=== PATIENT | male | born 1965 | race African-American/Black ===

== ENCOUNTER 2017-07-05 16:46 | Emergency (ER) | payer MEDICARE ==
[~2017-07-05] VITALS: Ht 182.9 cm; Wt 94.1 kg
--- NOTE | 2017-07-05 16:55 | NUR ---
BIB RA C/O PAIN TO L FEMORAL SHUNT DURING DIALYSIS 50MIN OF DIALYSIS COMPLETED. RR IS EVEN AND UNLABORED NAD NOTED. SKIN IS WARM AND DRY. AWAITING MD FOR EVAL.
[2017-07-05] MEDS ORDERED: FLUT1DIS5 IH (17:20)
[2017-07-05] MEDS ORDERED: ASPI-1169 PO (17:20)
[2017-07-05] MEDS ORDERED: ACET-868 PO (17:20)
[2017-07-05] MEDS ORDERED: ATOR40TA PO (17:20)
[2017-07-05] MEDS ORDERED: BISA5TAB10 PO (17:20)
[2017-07-05] MEDS ORDERED: HEPA10009 SQ (17:36)
[2017-07-05] MEDS ORDERED: OXYC-128 PO (17:36)
[2017-07-05] MEDS ORDERED: MONT10TA22 PO (17:36)
[2017-07-05] MEDS ORDERED: PANT40TA4 PO (17:36)
[2017-07-05] MEDS ORDERED: ISOS60TA4 PO (17:36)
[2017-07-05] MEDS ORDERED: DIVA250T6 PO (17:36)
[2017-07-05] MEDS ORDERED: NITR0.4T48 SL (17:36)
[2017-07-05] MEDS ORDERED: LACT10SO PO (17:36)
[2017-07-05] MEDS ORDERED: DIPH25CA6 PO (17:36)
[2017-07-05] MEDS ORDERED: LEVE250T2 PO (17:36)
[2017-07-05] MEDS ORDERED: LOSA100T15 PO (17:36)
[2017-07-05] MEDS ORDERED: FAMO20TA8 PO (17:36)
[2017-07-05] MEDS ORDERED: CITA10TA9 PO (17:36)
[2017-07-05] MEDS ORDERED: FERR325T23 PO (17:36)
[2017-07-05] MEDS ORDERED: CLOP75TA15 PO (17:36)
[2017-07-05] MEDS ORDERED: HYPR15DR5 EACHEYE (17:36)
[2017-07-05] MEDS ORDERED: INSU100V27 SQ (17:36)
[2017-07-05] MEDS ORDERED: GUAI100S11 PO (17:36)
[2017-07-05] MEDS ORDERED: CLON0.1T PO (17:36)
[2017-07-05] MEDS ORDERED: CARV6.252 PO (17:36)
[2017-07-05] MEDS ORDERED: EPOE1VIA12 SQ (17:36)
[2017-07-05] MEDS ORDERED: IPRA3AMP IH (17:36)
[2017-07-05] MEDS ORDERED: CINA30TA2 PO (17:36)
[2017-07-05] MEDS ORDERED: FOLI0.8T23 PO (17:38)
[2017-07-05] MEDS ORDERED: POLY17PO4 PO (17:38)
[2017-07-05] MEDS ORDERED: PHEN100C4 PO (17:38)
[2017-07-05] MEDS ORDERED: SEVE800T8 PO (17:38)
[2017-07-05] MEDS ORDERED: HYDROCODONE/APAP 5/325MG 1 EACH TABLET PO ONE (18:00)
[2017-07-05] MEDS ORDERED: HYDROCODONE/APAP 5/325MG 1 EACH TABLET ONE (18:03)
--- NOTE | 2017-07-05 18:51 | NUR ---
REPORT GIVEN TO SIDRA ORTEZ FOR [facility].
--- NOTE | 2017-07-05 18:54 | NUR ---
PT GIVEN D/C INSTRUCTOINS. PT GIVEN NEW RX. PT HAS NO FURTHER QUESTIONS/CONCERNS. PT CURRERNTLY AWAITING TRANSPORT FOR PICKUP.
--- NOTE | 2017-07-05 18:55 | NUR ---
DAVID CALLED [facility]SP[facility]#[id number]
[2017-07-05 19:50] VITALS: BP 154/84
== END 2017-07-05 19:51 ==
LOC: ER 16:47
DX: T84.84XA Pain due to internal orthopedic prosthetic devices, implants and grafts, initial encounter (principal); D50.9 Iron deficiency anemia, unspecified; E21.3 Hyperparathyroidism, unspecified; E11.22 Type 2 diabetes mellitus with diabetic chronic kidney disease; I12.0 Hypertensive chronic kidney disease with stage 5 chronic kidney disease or end stage renal disease; N18.6 End stage renal disease; Z99.2 Dependence on renal dialysis; Z79.4 Long term (current) use of insulin; Z88.1 Allergy status to other antibiotic agents; Z88.8 Allergy status to other drugs, medicaments and biological substances; Z79.82 Long term (current) use of aspirin
CPT/HCPCS: 93926; 99284; A4606; Z7610

== ENCOUNTER 2018-02-12 15:57 | Inpatient (IN) | payer MEDICARE, OTHER ==
[~2018-02-12] VITALS: Ht 165.1 cm; Wt 93.9 kg
[2018-02-12] VITALS: BP 81/37
[~2018-02-12 15:57] MED LIST: ACET-868 PO; ASPI-1169 PO; ATOR40TA PO; BISA5TAB10 PO; CARV6.252 PO; CINA30TA2 PO; CITA10TA9 PO; CLON0.1T PO; CLOP75TA15 PO; DIPH25CA6 PO; DIVA-76 PO; EPOE1VIA12 SQ; FAMO20TA8 PO; FERR325T23 PO; FLUT1DIS5 IH; FOLI0.8T23 PO; GUAI100S11 PO; HEPA10009 SQ; HYPR15DR5 EACHEYE; INSU100V27 SQ; IPRA3AMP23 IH; ISOS60TA4 PO; LACT10SO PO; LEVE250T2 PO; LOSA100T15 PO; MONT10TA22 PO; NITR0.4T48 SL; OXYC-128 PO; PANT40TA4 PO; PHEN100C4 PO; POLY17PO4 PO; SEVE800T8 PO
[2018-02-12] MEDS ORDERED: LINEZOLID RTU BAG 600 MG in PREMIX 1 EA IV STA (16:07)
[2018-02-12] MEDS ORDERED: CEFEPIME 1 GM in IV D5W 50 ML IV ONE (16:30)
[2018-02-12] MEDS ORDERED: IV NS 0.9% 1,000 ML BAG IV ONE (16:30)
[2018-02-12] MEDS ORDERED: ACETAMINOPHEN ES 500 MG TABLET PO ONE (16:30)
[2018-02-12] MEDS ORDERED: ACETAMINOPHEN ES 500 MG TABLET ONE (16:40)
[2018-02-12] MEDS ORDERED: ASCO500T9 PO (16:42)
[2018-02-12] MEDS ORDERED: HYDR-552 PO (16:42)
[2018-02-12] MEDS ORDERED: BISA5TAB10 PO (16:42)
[2018-02-12] MEDS ORDERED: TRAZ-182 PO (16:42)
[2018-02-12] MEDS ORDERED: NITR0.4T48 SL (16:42)
[2018-02-12] MEDS ORDERED: SENN-167 PO (16:42)
[2018-02-12] MEDS ORDERED: ONDA4TAB5 PO (16:42)
[2018-02-12 16:48] LABS: INR 1.27 (0.87-1.13)
--- NOTE | 2018-02-12 16:52 | NUR ---
Note undone in EDM - 02/12/18 at 1715 by DELMAR BIBRA 61 [facility] C/O CHEST PAIN AND FEVER WHILE IN THE MIDDLE OF DIALYSIS, 2HRS OUT OF 3 HRS. PT LETHARGIC, AAOX1, EASILY AWAKEN WITH VERBAL STIMULI & WILL GO BACK TO SLEEP RIGHT AWAY. NO SOB, N/V @ THIS TIME. ON SIDE SEAM MACHINE OPERATOR, ST, NO ECTOPY NOTED. PT SEEN & EVAL'D BY DR. ALEX. WILL CONT TO MONITOR.
--- NOTE | 2018-02-12 16:52 | NUR ---
BIBRA 61 FROM [facility]IS CENTER C/O CHEST PAIN AND FEVER WHILE IN THE MIDDLE OF DIALYSIS, 2HRS OUT OF 3 HRS. PT LETHARGIC, AAOX1, EASILY AWAKEN WITH VERBAL STIMULI & WILL GO BACK TO SLEEP RIGHT AWAY. ON HUMAN RESOURCES RECORDS CLERK, ST, NO ECTOPY NOTED. PT SEEN & EVAL'D BY DR. ALEX. WILL CONT TO MONITOR.
[2018-02-12 16:56] LABS: TROPONIN I 0.156 ng/mL (0.00-0.056)
[2018-02-12 17:10] LABS: ALBUMIN 3.5 g/dL (3.4-5.0); BILIRUBIN,TOTAL 0.7 mg/dL (0.2-1.0); CALCIUM, SERUM 8.9 mg/dL (8.5-10.1); CREATININE 4.7 mg/dL (0.6-1.3); POTASSIUM 3.7 mmol/L (3.5-5.1); TOTAL PROTEIN, SERUM 8.6 g/dL (6.4-8.2)
[2018-02-12 17:20] LABS: BILIRUBIN,DIRECT 0.4 mg/dL (0.0-0.2)
[2018-02-12] MEDS ORDERED: PHEN100C4 PO (17:20)
[2018-02-12] MEDS ORDERED: BISA10SU8 RC (17:20)
[2018-02-12] MEDS ORDERED: INSU100V3 SQ (17:20)
[2018-02-12 17:21] LABS: RED BLOOD CELL COUNT(AUTO) 2.53 MIL/uL (4.5-6.0); WHITE BLOOD COUNT (AUTO) 2.1 K/uL (4.3-11.0)
[2018-02-12 17:22] LABS: BASOPHILS % (AUTO) 0.9 % (0.0-2.0); EOSINOPHILS % (AUTO) 2.5 % (0.0-6.0); HEMATOCRIT 22 % (39-51); HEMOGLOBIN 7.5 g/dL (13.5-17.5); LYMPHOCYTES % (AUTO) 14.8 % (20.0-44.0); MEAN CORPUSCULAR HGB CONC 33 g/dl (31.0-36.0); MEAN CORPUSCULAR VOLUME 89 fL (80-96); MONOCYTES % (AUTO) 12.1 % (2.0-12.0); NEUTROPHILS % (AUTO) 69.7 % (43.0-81.0); PLATELET COUNT (AUTO) 112 /CMM (150-450); RDW COEFFICIENT OF VARIATION 20.1 (11.5-15.0)
[2018-02-12 17:25] LABS: LYMPHOCYTES # (AUTO) 0.3 /CMM (0.8-4.8); MONOCYTES # (AUTO) 0.3 /CMM (0.1-1.30); NEUTROPHILS # (AUTO) 1.5 /CMM (1.8-8.9)
--- NOTE | 2018-02-12 18:27 | NUR ---
CALLED [facility] NEPHROLOGY SOAPSTONER WAS PAGED.
[2018-02-12] MEDS ORDERED: KETOROLAC TROMETHAMINE INJ 30 MG/ML VIAL IV ONE (19:00)
[2018-02-12] MEDS ORDERED: KETOROLAC TROMETHAMINE 15 MG/ML VIAL ONE (19:04)
--- NOTE | 2018-02-12 19:44 | NUR ---
PT IS ASSIGNED TO [facility]#: [id number], DX: SEPSIS, AND ACCEPTING MD: NELSON CHAVES,
[2018-02-12] MEDS ORDERED: MORPHINE SULFATE INJ 4 MG/ML DISP.SYRIN ONE (20:24)
[2018-02-12] MEDS ORDERED: ONDANSETRON HCL/PF 4 MG/2 ML VIAL ONE (20:38)
--- NOTE | 2018-02-12 20:46 | NUR ---
PT ARRIVED FROM [facility] IN STABLE CONDITION NO COMPLAIN OF CHEST PAIN AT THIS TIME. UPON CHECKING ORDERS PT IS TO ADMIT TO JEN. COMMUNITY ARTS WORKER CALLED AWAITING FOR JEN BED.
[2018-02-12] MEDS ORDERED: MORPHINE SULFATE INJ 2 MG/ML DISP.SYRIN IV ONE (21:00)
[2018-02-12] MEDS ORDERED: ONDANSETRON HCL/PF 4 MG/2 ML VIAL IVP ONE (21:00)
--- NOTE | 2018-02-12 21:20 | NUR ---
PT TRANSFERRED TO [facility] ROOM 120 ACLS PROTOCOL IN STABLE CONDITION PER ORDERS OF DR. GIFFORD. GAVE REPORT JEN VALENTE Addendum: 02/12/18 at 2141 by ANTONI QUINTANILLA RN NO INCIDENT
[2018-02-12 21:30] VITALS: BP 116/87
[2018-02-12] MEDS ORDERED: ACETAMINOPHEN 325 MG TABLET PO PRN ×2 (21:30→22:00)
--- NOTE | 2018-02-12 21:30 | NUR ---
RN JEN ADMITTING NOTE RECEIVED PT FROM [facility], BEDSIDE REPORT GIVEN BY [facility] NURSE, PT AMS, ON 2L NC WELL FLOR[place]INO LETHARGIC, SPEECH NOT CLEAR, VERY WEAK, DR NELSON CHAVES ADMITTING, DIAGNOSIS SEPSIS, ALL ADMITTING ORDERS ENTERED PER PROTOCOL, W/SKIN ISSUES NOTED, LW#20G, INTACT, WELL SECURED AND PATENT, SAFETY MEASURES MET, WILL CONT TO MONITOR, BED IN LOW POSITION, CALL LIGHT W/R.
[2018-02-12] MEDS ORDERED: DEXTROSE 50%-WATER 50 ML DISP.SYRIN IV PRN (23:00)
[2018-02-12] MEDS: BLOOD SUGAR DIAGNOSTIC 1 EACH STRIP IN SCH (23:47)
[2018-02-13] VITALS (9 sets, daily range): BP systolic 79–145; BP diastolic 16–105
[2018-02-13] MEDS: PIPERACILLIN /TAZOBACTAM 2.25 G in IV D5W 50 ML IV SCH ×5 (00:04→23:08)
--- NOTE | 2018-02-13 00:25 | NUR ---
RECHECKED BS AFTER DEXTROSE IV PUSH BS 95 15 MIN
--- NOTE | 2018-02-13 00:40 | NUR ---
PT BP LOW 81/37 84 HR.
[2018-02-13] MEDS ORDERED: IV NS 0.9% 500 ML BAG IV ONE (01:15)
--- NOTE | 2018-02-13 01:16 | NUR ---
IV NS 500ML GIVEN OVER 2HR X 1 BAG BP STILL LOW, UNABLE TO SCAN BAG TO IV SPREAD SHEET.
--- NOTE | 2018-02-13 01:45 | NUR ---
CALLED SOFTWARE DEVELOPMENT PROJECT MANAGER DR NELSON CHAVES, W/ ORDERS FOR NS 500M/ IV OVER 2HRS AND 25% ALBUMIN, 200ML AND AFTER IF BP DOES NOT INCREASE TRANSFER TO ICU. Addendum: 02/13/18 at 0532 by SHARMILA VAUGHN RN NS 500ML X1 BAG AND ALBUMIN 25% TOTAL GIVEN 100ML, UNABLE TO VERIFY W/MD NELSON CHAVES IF DOSE TO BE GIVEN IS 200ML TOTAL, HANG UP PHONE WHEN ASKED TO VERIFY DOSE, NOT CLEAR AT TIME OF T/O.
[2018-02-13] MEDS ORDERED: ALBUMIN 25% 50 ML IV ONE (03:48)
[2018-02-13] MEDS: ALBUMIN 25% 25 GM in PREMIX 1 EA IV PRN ×2 (04:22→05:12)
[2018-02-13] MEDS ORDERED: PIPERACILLIN /TAZOBACTAM 2.25 G VIAL IV ONE ×2 (05:44)
[2018-02-13] MEDS: BLOOD SUGAR DIAGNOSTIC 1 EACH STRIP IN SCH ×4 (06:19→21:20)
--- NOTE | 2018-02-13 06:44 | NUR ---
RN JEN CLOSING NOTE PT CONT ON MONITORING FOR LOW BP 81/31 81, ALBUMIN TOTAL 100/25% GIVEN, BP INCREASE TO 90/40 73. PT APPEARED LETHERGIC, DIFFICULT TO AROUSE BY NAME, 0730 BS CHECKED 0600 D/T LOW TRENDING, RECHECKED 69 AROUSED PT CRANEBERRY JUICE GIVEN PO, WELL FLORENTINO, PT ABLE TO WAKE UP, WILL ENDORSE TO AM SHIFT RN TO CONT TO MONITOR.
[2018-02-13 07:13] LABS: CALCIUM, SERUM 8.4 mg/dL (8.5-10.1); CREATININE 5.6 mg/dL (0.6-1.3); MAGNESIUM 1.8 mg/dL (1.8-2.4); PHOSPHORUS 4.1 mg/dL (2.5-4.9); POTASSIUM 4.1 mmol/L (3.5-5.1)
[2018-02-13] MEDS ORDERED: ALBUTEROL FS 2.5 MG/0.5 ML VIAL.NEB NEB SCH (07:35)
--- NOTE | 2018-02-13 08:00 | NUR ---
RN JEN OPENING NOTES RECEIVED PATIENT IN BED EXTREMELY LETHARGIC. ABLE TO AROUSE WITH AGGRESSIVE STIMULATION. FULL REPORT RECEIVED FROM BRADEN. VITAL SIGNS STILL REMAIN UNSTABLE B/P 93/27 AFTER ONE DOSE OF ALBUMIN ABLE TO WAKE TO EAT BREAKFAST NO S/S OF ASPIRATION. PT HEARD OF HEARING WILL CONT YO MONITOR LABS AND VITALS TO SEE IF PT NEEDS HIGHER LEVEL OF CARE.
[2018-02-13 08:11] LABS: WHITE BLOOD COUNT (AUTO) 4.8 K/uL (4.3-11.0)
[2018-02-13 08:12] LABS: BASOPHILS % (AUTO) 0.5 % (0.0-2.0); EOSINOPHILS % (AUTO) 0.5 % (0.0-6.0); HEMATOCRIT 23 % (39-51); HEMOGLOBIN 7.3 g/dL (13.5-17.5); LYMPHOCYTES % (AUTO) 11.8 % (20.0-44.0); MEAN CORPUSCULAR HGB CONC 32 g/dl (31.0-36.0); MEAN CORPUSCULAR VOLUME 90 fL (80-96); MONOCYTES % (AUTO) 23.8 % (2.0-12.0); NEUTROPHILS % (AUTO) 63.4 % (43.0-81.0); PLATELET COUNT (AUTO) 75 /CMM (150-450); RED BLOOD CELL COUNT(AUTO) 2.53 MIL/uL (4.5-6.0)
[2018-02-13 08:13] LABS: LYMPHOCYTES # (AUTO) 0.6 /CMM (0.8-4.8); MONOCYTES # (AUTO) 1.1 /CMM (0.1-1.30); NEUTROPHILS # (AUTO) 3.1 /CMM (1.8-8.9)
[2018-02-13] MEDS ORDERED: ALBUTEROL FS 2.5 MG/0.5 ML VIAL.NEB NEB PRN (08:18)
[2018-02-13] MEDS ORDERED: SENNOSIDES 8.6 MG TABLET PO PRN (08:30)
[2018-02-13] MEDS ORDERED: INSULIN REGULAR, HUMAN 100 UNIT/ML 3 ML VIAL SQ PRN (08:30)
[2018-02-13] MEDS ORDERED: BISACODYL (5 MG) 5 MG TABLET.DR PO PRN (08:30)
[2018-02-13] MEDS ORDERED: ACETAMINOPHEN 325 MG TABLET PO PRN (08:30)
[2018-02-13] MEDS: PANTOPRAZOLE 40 MG TABLET.DR PO SCH ×2 (08:30→09:19)
[2018-02-13] MEDS ORDERED: BISACODYL SUPP (10 MG) 10 MG/SUPP.RECT SUPP.RECT RC PRN (08:30)
[2018-02-13] MEDS: ASCORBIC ACID 500 MG TABLET PO SCH ×2 (09:00→09:15)
[2018-02-13] MEDS: CITALOPRAM HYDROBROMIDE 10 MG TABLET PO SCH ×2 (09:00→09:14)
[2018-02-13] MEDS: PHENYTOIN EXTENDED RELEASE 100 MG CAPSULE PO SCH ×3 (09:00→21:18)
[2018-02-13] MEDS: CARVEDILOL 6.25 MG TABLET PO SCH ×2 (09:00→16:32)
[2018-02-13] MEDS: FLUTICASONE/VILANTEROL 1 EACH BLST.W.DEV IH SCH (09:00)
[2018-02-13] MEDS: CINACALCET HCL 30 MG TABLET PO SCH ×2 (09:00→09:14)
[2018-02-13] MEDS ORDERED: ONDANSETRON 4 MG TAB.RAPDIS PO PRN (09:00)
[2018-02-13] MEDS ORDERED: FLUTICASONE/SALMETEROL DISKUS IH SCH (09:00)
--- NOTE | 2018-02-13 09:35 | NUR ---
JEN RN NOTES UNABLE TO AROUSE AND WAKE PATIENT TO ADMINISTER MEDS B/P ON (R) UPPER THIGH 79/28 HR 67 B/P (R) CALF 93/16 HR 66 . PT CONSUMED 25% BREAKFAST BS 136 O2 99% ON 3 LTRS.
--- NOTE | 2018-02-13 09:45 | NUR ---
RN NOTE PAGED DR COLÓN REGARDING BP BEING LOW, PERFUME AND TOILET WATER MAKER CALLED BACK TELLING THAT PER DR SPRAGUE THAT BP IS NORMAL FOR HIM, MENTIONED THAT PT DIFFICULT TO AROSE, AND LETHARGIC, THE PERFUME AND TOILET WATER MAKER SAID SHE WILL MESSAGE DR COLÓN AGAIN. WILL F/U AND MONITOR THE PT.
--- NOTE | 2018-02-13 10:21 | NUR ---
RECEIVED A CALL BACK FROM DR. COLÓN AND HE WAS INFORMED ABOUT THE PATIENT'S BP OF 85/32 HR 65. PER MD, THIS IS THE PATIENT'S BASELINE HE HAS GIVEN NO PARAMETER FOR THE BLOOD PRESSURE. MD WAS ALSO INFORMED THAT THE PATIENT WAS NOTED LETHARGIC. WILL CONTINUE TO MONITOR THE PATIENT'S CONDITION.
[2018-02-13 10:33] LABS: BAND % (MANUAL) 15 % (0.0-5.0); LYMPHOCYTES % (MANUAL) 11 % (16-48); MONOCYTES % (MANUAL) 11 % (0-11.0); NEUTROPHILS % (MANUAL) 63 (42-76)
[2018-02-13] MEDS: SEVELAMER CARBONATE 800 MG TABLET PO SCH ×2 (13:05→18:00)
[2018-02-13] MEDS ORDERED: EPOETIN ALFA (10,000 UNIT) 10,000 UNIT/ML VIAL IV ONE (13:30)
--- NOTE | 2018-02-13 19:36 | NUR ---
TD RN NOTES RECEIVED PT ON BED, A/OX1 SLEEPING. ON NASAL CANNULA 3LPM SATURATING WELL. NO RESPIRATORY DISTRESS NOTED. ON TELE MONITOR SR 88. IV ACCESS ON LWRIST G20 SALINE LOCK. NO BLEEDING OR INFILTRATION NOTED. HD ACCESS ON LEFT FEMUR AV SHUNT NO BLEEDING NOTED. HEAD OF BED ELEVATED. SIDE RAILS UP. CALL LIGHT WITHIN REACH. BED ALARM ON. WILL CONTINUE TO MONITOR PT CLOSELY.
[2018-02-13] MEDS: VIT B CMPLX 3/FA/VIT C/BIOTIN 1 TAB TABLET PO SCH (21:18)
[2018-02-13] MEDS: ATORVASTATIN 40 MG TABLET PO SCH (21:18)
[2018-02-14] VITALS (8 sets, daily range): BP systolic 76–118; BP diastolic 19–79
--- NOTE | 2018-02-14 00:06 | NUR ---
TD RN NOTES CALLED DR CALDWELL REGARDING PT BLOOD PRESSURE OF 83/31MMHG. ORDERED BOLUS NS 500CC. WILL CONTINUE TO MONITOR PT CLOSELY.
[2018-02-14] MEDS ORDERED: IV NS 0.9% 500 ML IV ONE (01:00)
[2018-02-14] MEDS: PIPERACILLIN /TAZOBACTAM 2.25 G in IV D5W 50 ML IV SCH ×4 (05:00→23:22)
--- NOTE | 2018-02-14 07:12 | NUR ---
TD RN NOTES NO ACUTE CHANGES NOTED DURING THE SHIFT. PROVIDED COMFORT AND SAFETY. DUE MEDS GIVEN. ENDORSE TO THE AM NURSE FOR CONTINUITY OF CARE.
[2018-02-14] MEDS: CITALOPRAM HYDROBROMIDE 10 MG TABLET PO SCH (09:00)
[2018-02-14] MEDS: CARVEDILOL 6.25 MG TABLET PO SCH ×2 (09:00→17:00)
[2018-02-14] MEDS: BLOOD SUGAR DIAGNOSTIC 1 EACH STRIP IN SCH ×4 (09:31→21:07)
[2018-02-14] MEDS: SEVELAMER CARBONATE 800 MG TABLET PO SCH ×3 (09:34→17:39)
[2018-02-14] MEDS: FLUTICASONE/VILANTEROL 1 EACH BLST.W.DEV IH SCH (09:34)
[2018-02-14] MEDS: CINACALCET HCL 30 MG TABLET PO SCH (09:35)
[2018-02-14] MEDS: ASPIRIN 81 MG TAB.CHEW PO SCH (09:37)
[2018-02-14] MEDS: ASCORBIC ACID 500 MG TABLET PO SCH (09:37)
[2018-02-14] MEDS: PHENYTOIN EXTENDED RELEASE 100 MG CAPSULE PO SCH ×2 (09:37→21:07)
[2018-02-14] MEDS: PANTOPRAZOLE 40 MG TABLET.DR PO SCH (09:39)
[2018-02-14 12:26] LABS: THYROID STIMULATING HORMONE 1.967 uIU/mL (0.358-3.74)
--- NOTE | 2018-02-14 15:00 | NUR ---
RN NOTE [facility] SCHEDULED FOR 1200 NOT GIVEN DUE TO HD DURING THIS TIME, PHARMACY AWARE, WILL ADMINISTER NEXT DOSE.
--- NOTE | 2018-02-14 19:15 | NUR ---
RN JEN NOTE RECEIVED PATIENT WITH HOB ELEVATED, AOX2, ABLE TO MAKE NEEDS KNOWN, NO S/SX OF CARDIAC OR RESPIRATORY DISTRESS, ON 2L O2 VIA NC, ON TELE SR, SKIN KEPT CLEAN AND DRY, L WRIST #20G SL, PATENT FLUSHING WELL, SITE IS CLEAN AND DRY, HD CATH IN LEFT FEMORAL, KEPT CLEAN AND DRY, DENIES PAIN. WILL CONTINUE TO MONITOR FOR ANY CHANGES, SAFETY MAINTAINED AT ALL TIMES, CALL LIGHT WITHIN REACH, BED IN LOW, LOCKED POSITION.
--- NOTE | 2018-02-14 19:28 | NUR ---
RN NOTE PT VISITED BY SISTER, PER SISTER PT WAS NOT HARD OF HEARING BEFORE, NOW PT SEEMS TO BE HARD OF HEARING, WILL ENDORSE TO NEXT SHIFT.
[2018-02-14] MEDS: ATORVASTATIN 40 MG TABLET PO SCH (21:06)
[2018-02-14] MEDS: VIT B CMPLX 3/FA/VIT C/BIOTIN 1 TAB TABLET PO SCH (21:06)
[2018-02-15] VITALS (13 sets, daily range): BP systolic 90–150; BP diastolic 38–84
[2018-02-15] MEDS: PIPERACILLIN /TAZOBACTAM 2.25 G in IV D5W 50 ML IV SCH ×4 (05:37→23:43)
[2018-02-15 06:52] LABS: EOSINOPHILS % (AUTO) 4.6 % (0.0-6.0); HEMATOCRIT 22 % (39-51); LYMPHOCYTES # (AUTO) 0.6 /CMM (0.8-4.8); LYMPHOCYTES % (AUTO) 18.1 % (20.0-44.0); MEAN CORPUSCULAR HGB CONC 32 g/dl (31.0-36.0); MEAN CORPUSCULAR VOLUME 90 fL (80-96); MONOCYTES # (AUTO) 0.4 /CMM (0.1-1.30); MONOCYTES % (AUTO) 11.9 % (2.0-12.0); NEUTROPHILS # (AUTO) 2.3 /CMM (1.8-8.9); NEUTROPHILS % (AUTO) 65.4 % (43.0-81.0); PLATELET COUNT (AUTO) 129 /CMM (150-450); RDW COEFFICIENT OF VARIATION 20.5 (11.5-15.0); RED BLOOD CELL COUNT(AUTO) 2.39 MIL/uL (4.5-6.0); WHITE BLOOD COUNT (AUTO) 3.6 K/uL (4.3-11.0)
[2018-02-15 07:12] LABS: ALBUMIN 2.8 g/dL (3.4-5.0); BILIRUBIN,TOTAL 0.5 mg/dL (0.2-1.0); CALCIUM, SERUM 8.3 mg/dL (8.5-10.1); CREATININE 5.1 mg/dL (0.6-1.3); MAGNESIUM 1.9 mg/dL (1.8-2.4); PHOSPHORUS 2.5 mg/dL (2.5-4.9); POTASSIUM 3.8 mmol/L (3.5-5.1); TOTAL PROTEIN, SERUM 7.3 g/dL (6.4-8.2)
[2018-02-15 07:33] LABS: TROPONIN I 0.616 ng/mL (0.00-0.056)
[2018-02-15 07:47] LABS: HEMOGLOBIN 6.9 g/dL (13.5-17.5)
[2018-02-15] MEDS: BLOOD SUGAR DIAGNOSTIC 1 EACH STRIP IN SCH ×4 (08:17→22:13)
[2018-02-15] MEDS: FLUTICASONE/VILANTEROL 1 EACH BLST.W.DEV IH SCH (08:24)
[2018-02-15] MEDS: CITALOPRAM HYDROBROMIDE 10 MG TABLET PO SCH (08:24)
[2018-02-15] MEDS: ASCORBIC ACID 500 MG TABLET PO SCH (08:24)
[2018-02-15] MEDS: PANTOPRAZOLE 40 MG TABLET.DR PO SCH (08:24)
[2018-02-15] MEDS: SEVELAMER CARBONATE 800 MG TABLET PO SCH ×3 (08:25→17:44)
[2018-02-15] MEDS: PHENYTOIN EXTENDED RELEASE 100 MG CAPSULE PO SCH ×2 (08:25→22:02)
[2018-02-15] MEDS: NITROGLYCERIN 0.4 MG/TAB BOTTLE SL PRN ×3 (08:26→12:29)
[2018-02-15] MEDS: CINACALCET HCL 30 MG TABLET PO SCH (08:26)
[2018-02-15] MEDS: CARVEDILOL 6.25 MG TABLET PO SCH ×2 (08:27→17:44)
[2018-02-15] MEDS: ASPIRIN 81 MG TAB.CHEW PO SCH (08:27)
[2018-02-15 08:40] LABS: BAND % (MANUAL) 2 % (0.0-5.0); LYMPHOCYTES % (MANUAL) 15 % (16-48); MONOCYTES % (MANUAL) 10 % (0-11.0); NEUTROPHILS % (MANUAL) 69 (42-76)
[2018-02-15 08:41] LABS: EOSINOPHILS % (MANUAL) 4 % (0-4)
--- NOTE | 2018-02-15 10:32 | NUR ---
RN NOTE AT 0745 PT CO CHEST PAIN, LAB CALLED AND REPORTED ELEVATED TROP 0.616, HGF 6.9, DR HERNANDEZ PAGED AND DR CASE PAGED. PER DR CASE TO HOLD ASPIRIN AND ANY ANTICOAGULATION MEDS, PT WILL NEED BLOOD TRANSFUSION. PER DR ROSADO, TO TRANSFUSE 2 UNITS OF PRBCS.
[2018-02-15] MEDS: HYDROCODONE/APAP 5/325MG 1 EACH TABLET PO PRN (14:13)
--- NOTE | 2018-02-15 19:09 | NUR ---
RN NOTE PT REMAINED STABLE BESIDE THE CHEST PAIN FOR HALF DAY, NITROGLYCERIN SL GIVEN X3, NORCO X GIVEN, 1 UNIT PRBCS GIVEN BEFORE HD, SECOND UNIT GIVEN WITH HD. bp stable, po intake 100% and asks for more food. by the end of the day denies chest pain. safety measures in place, will endorse to shift manager.
--- NOTE | 2018-02-15 21:30 | NUR ---
VENDOR ANALYST OPENING NOTE - On-Call, called in after normal start time Patient was seen sitting up in bed watching TV, AAOx1, breathing on 3L O2 NC with no SOB, and no signs of acute distress. Patient on telemonitor showing normal sinus rhythm. LFA SL IV is intact and patent. AV shunt noted on the left thigh; covered with a dressing that is clean, dry, and intact. Bed is low/locked, two side rails up, and call calloway within reach. Patient has no immediate needs/concerns at this time. Will continue to monitor.
[2018-02-15] MEDS: MUPIROCIN OINT 2% 22 GM TUBE SCH (21:50)
[2018-02-15] MEDS: ATORVASTATIN 40 MG TABLET PO SCH (22:01)
[2018-02-15] MEDS: VIT B CMPLX 3/FA/VIT C/BIOTIN 1 TAB TABLET PO SCH (22:02)
[2018-02-15] MEDS: INSULIN REGULAR, HUMAN 100 UNIT/ML 3 ML VIAL SQ PRN (22:15)
[2018-02-15] MEDS ORDERED: PIPERACILLIN /TAZOBACTAM 2.25 G VIAL IV ONE (23:25)
[2018-02-16] VITALS: BP 129/103
[2018-02-16 04:00] VITALS: BP 135/107
[2018-02-16] MEDS: HYDROCODONE/APAP 5/325MG 1 EACH TABLET PO PRN ×2 (04:41→18:37)
--- NOTE | 2018-02-16 04:41 | NUR ---
AUTOBODY TECHNICIAN NOTE - Bayard Patient reported mod-severe chest pain. PO Bayard 5/325mg was given per prn orders. Per report from previous RN, patient has had on-going chest pain, which is most relieved by Bayard. aware.
[2018-02-16] MEDS ORDERED: PIPERACILLIN /TAZOBACTAM 2.25 G VIAL IV ONE (04:50)
[2018-02-16] MEDS: PIPERACILLIN /TAZOBACTAM 2.25 G in IV D5W 50 ML IV SCH ×4 (06:00→23:50)
[2018-02-16 06:55] LABS: EOSINOPHILS % (AUTO) 5.2 % (0.0-6.0); HEMATOCRIT 24 % (39-51); HEMOGLOBIN 7.5 g/dL (13.5-17.5); LYMPHOCYTES # (AUTO) 0.6 /CMM (0.8-4.8); LYMPHOCYTES % (AUTO) 15.2 % (20.0-44.0); MEAN CORPUSCULAR HGB CONC 32 g/dl (31.0-36.0); MEAN CORPUSCULAR VOLUME 88 fL (80-96); MONOCYTES # (AUTO) 0.4 /CMM (0.1-1.30); MONOCYTES % (AUTO) 9.4 % (2.0-12.0); NEUTROPHILS # (AUTO) 2.8 /CMM (1.8-8.9); NEUTROPHILS % (AUTO) 70.2 % (43.0-81.0); PLATELET COUNT (AUTO) 146 /CMM (150-450); RDW COEFFICIENT OF VARIATION 21.5 (11.5-15.0); RED BLOOD CELL COUNT(AUTO) 2.68 MIL/uL (4.5-6.0); WHITE BLOOD COUNT (AUTO) 3.9 K/uL (4.3-11.0)
[2018-02-16 07:02] LABS: ALBUMIN 2.7 g/dL (3.4-5.0); BILIRUBIN,TOTAL 0.7 mg/dL (0.2-1.0); CALCIUM, SERUM 8.6 mg/dL (8.5-10.1); CREATININE 4.8 mg/dL (0.6-1.3); MAGNESIUM 1.9 mg/dL (1.8-2.4); PHOSPHORUS 2.1 mg/dL (2.5-4.9); POTASSIUM 3.8 mmol/L (3.5-5.1); TOTAL PROTEIN, SERUM 7.2 g/dL (6.4-8.2); TROPONIN I 0.36 ng/mL (0.00-0.056)
--- NOTE | 2018-02-16 07:29 | NUR ---
PRACTICING UROLOGIST CLOSING NOTE Patient was seen sleeping in bed but awakes to name; he is AAOx1, breathing on 3L O2 NC with no SOB, and no signs of acute distress. Patient on telemonitor showing normal sinus rhythm at 90 bpm. LFA SL IV is intact and patent. AV shunt noted on the left thigh; covered with a dressing that is clean, dry, and intact. Bed is low/locked, two side rails up, and call calloway within reach. Patient has no immediate needs/concerns at this time. Patient care endorsed to day shift nurse.
[2018-02-16] MEDS: BLOOD SUGAR DIAGNOSTIC 1 EACH STRIP IN SCH ×4 (07:31→21:54)
[2018-02-16 08:00] VITALS: BP 93/44
[2018-02-16] MEDS: PHENYTOIN EXTENDED RELEASE 100 MG CAPSULE PO SCH ×2 (08:11→21:15)
[2018-02-16] MEDS: SEVELAMER CARBONATE 800 MG TABLET PO SCH ×3 (08:11→17:23)
[2018-02-16] MEDS: PANTOPRAZOLE 40 MG TABLET.DR PO SCH (08:11)
[2018-02-16] MEDS: CINACALCET HCL 30 MG TABLET PO SCH (08:11)
[2018-02-16] MEDS: ASCORBIC ACID 500 MG TABLET PO SCH (08:11)
[2018-02-16] MEDS: CARVEDILOL 6.25 MG TABLET PO SCH ×2 (08:12→17:00)
[2018-02-16] MEDS: FLUTICASONE/VILANTEROL 1 EACH BLST.W.DEV IH SCH (08:12)
[2018-02-16] MEDS: CITALOPRAM HYDROBROMIDE 10 MG TABLET PO SCH (08:15)
[2018-02-16] MEDS: MUPIROCIN OINT 2% 22 GM TUBE SCH ×2 (08:17→21:24)
[2018-02-16 12:00] VITALS: BP 95/64
[2018-02-16] MEDS ORDERED: diphenhydrAMINE HCL 50 MG CAPSULE PO STA (12:33)
[2018-02-16] MEDS ORDERED: methylPREDNISolone SOD SUCC 125 MG/2ML VIAL IV STA (12:33)
[2018-02-16] MEDS ORDERED: EPOETIN ALFA (10,000 UNIT) 10,000 UNIT/ML VIAL IV ONE (13:00)
[2018-02-16] MEDS ORDERED: CT SWABBABLE VALVE TRANS SET 1 EA INFUS.SET MC ONE (13:09)
[2018-02-16] MEDS ORDERED: IOHEXOL-350 100 ML VIAL IV ONE ×2 (13:09→13:48)
[2018-02-16] MEDS ORDERED: IV NS 0.9% 250 ML IV ONE (13:09)
[2018-02-16 16:00] VITALS: BP_SYST 138; BP_DIAS 68; BP_DIAS 70
[2018-02-16] MEDS: INSULIN REGULAR, HUMAN 100 UNIT/ML 3 ML VIAL SQ PRN ×2 (17:31→21:53)
--- NOTE | 2018-02-16 18:40 | NUR ---
rn note 1700 o clock carvedilol held due to HD soon, BP fluctuates.
--- NOTE | 2018-02-16 19:32 | NUR ---
MS RN NOTES: RECEIVED PT ON BED ALERT AND AWAKE, VERBALLY RESPONSIVE. NO ACUTE DISTRESS NOTED. NO COMPLAINTS OF PAIN OR DISCOMFORT AT THIS TIME. PT HAS ONGOING HD. ON 3LPM NASAL CANNULA, NO SOB NOTED. KEPT CLEAN, DRY AND COMFORTABLE. SAFETY AND FALL PRECAUTIONS OBSERVED AND MAINTAINED. CALL LIGHT PLACED WITHIN REACH. WILL CONTINUE TO MONITOR PT.
[2018-02-16 20:00] VITALS: BP 136/70
[2018-02-16] MEDS: ATORVASTATIN 40 MG TABLET PO SCH (21:15)
[2018-02-16] MEDS: VIT B CMPLX 3/FA/VIT C/BIOTIN 1 TAB TABLET PO SCH (21:15)
[2018-02-17 04:00] VITALS: BP 133/66
[2018-02-17] MEDS: PIPERACILLIN /TAZOBACTAM 2.25 G in IV D5W 50 ML IV SCH ×4 (05:14→23:00)
--- NOTE | 2018-02-17 06:30 | NUR ---
MS RN NOTES: NO CHANGES NOTED THROUGHOUT THE SHIFT. DENIES PAIN AND DISCOMFORT AT THIS TIME. ON 3LPM NASAL CANNULA, SATURATING WELL. IV ON LEFT FOREARM #20 INTACT AND PATENT, FLUSHING WELL. KEPT CLEAN, DRY AND COMFORTABLE. SAFETY AND FALL PRECAUTIONS OBSERVED. WILL ENDORSE TO DAY SHIFT RN FOR CONTINUITY OF CARE.
[2018-02-17 06:45] LABS: HEMATOCRIT 27 % (39-51); IRON, SERUM 44 ug/dl (50-175); MEAN CORPUSCULAR HGB CONC 33 g/dl (31.0-36.0); MEAN CORPUSCULAR VOLUME 87 fL (80-96); PLATELET COUNT (AUTO) 171 /CMM (150-450); RDW COEFFICIENT OF VARIATION 20.7 (11.5-15.0); RED BLOOD CELL COUNT(AUTO) 3.14 MIL/uL (4.5-6.0); TOTAL IRON BINDING CAPACITY 139 ug/dl (250-450); WHITE BLOOD COUNT (AUTO) 5.5 K/uL (4.3-11.0)
[2018-02-17 06:46] LABS: BASOPHILS % (AUTO) 0.5 % (0.0-2.0); EOSINOPHILS % (AUTO) 1.9 % (0.0-6.0); LYMPHOCYTES % (AUTO) 14.4 % (20.0-44.0); MONOCYTES % (AUTO) 9.8 % (2.0-12.0); NEUTROPHILS % (AUTO) 73.4 % (43.0-81.0)
--- NOTE | 2018-02-17 07:00 | NUR ---
MS RN OPENING NOTES Patient was seen sitting up in bed watching TV, AAOx1, breathing on 3L O2 NC with no SOB, and no signs of acute distress. LFA SL IV is intact and patent. AV shunt noted on the left thigh; covered with a dressing that is clean, dry, and intact. Bed is low/locked, two side rails up, and call calloway within reach. Patient has no immediate needs/concerns at this time. Will continue to monitor.
[2018-02-17 07:21] LABS: FERRITIN 794 ng/mL (8-388)
[2018-02-17] MEDS: PANTOPRAZOLE 40 MG TABLET.DR PO SCH (07:48)
[2018-02-17] MEDS: SEVELAMER CARBONATE 800 MG TABLET PO SCH ×3 (07:48→17:40)
[2018-02-17 08:00] VITALS: BP 104/58
[2018-02-17] MEDS: BLOOD SUGAR DIAGNOSTIC 1 EACH STRIP IN SCH ×4 (08:01→21:38)
[2018-02-17] MEDS: CARVEDILOL 6.25 MG TABLET PO SCH ×2 (09:00→17:00)
[2018-02-17] MEDS: CINACALCET HCL 30 MG TABLET PO SCH (09:41)
[2018-02-17] MEDS: CITALOPRAM HYDROBROMIDE 10 MG TABLET PO SCH (09:41)
[2018-02-17] MEDS: ASCORBIC ACID 500 MG TABLET PO SCH (09:41)
[2018-02-17] MEDS: PHENYTOIN EXTENDED RELEASE 100 MG CAPSULE PO SCH ×2 (09:42→21:37)
[2018-02-17 11:03] VITALS: BP 104/58
[2018-02-17 12:00] VITALS: BP_SYST 108; BP_DIAS 52; BP_DIAS 59
[2018-02-17] MEDS: INSULIN REGULAR, HUMAN 100 UNIT/ML 3 ML VIAL SQ PRN ×3 (12:19→21:39)
[2018-02-17] MEDS: NITROGLYCERIN 0.4 MG/TAB BOTTLE SL PRN (12:32)
--- NOTE | 2018-02-17 12:36 | NUR ---
MS RN NOTES PT COMPLAINT OF CHEST PAIN LEVEL 9. GIVEN NITRO SL MD ORDERED. WILL CONT TO MONITOR. NOTIFIED CHARGE NURSE
[2018-02-17] MEDS: HYDROCODONE/APAP 5/325MG 1 EACH TABLET PO PRN ×2 (12:43→23:00)
[2018-02-17 16:00] VITALS: BP 94/58
[2018-02-17] MEDS: MUPIROCIN OINT 2% 22 GM TUBE SCH ×2 (16:37→21:38)
--- NOTE | 2018-02-17 19:19 | NUR ---
MS RN CLOSING NOTES REPORTED TO PM NURSE FOR CONTINUITY OF CARE. PT IS NOT IN DISTRESS AT THIS TIME. PT IS RESTING IN BED. ALL NEEDS ATTENDED TO. SAFETY PRECAUTIONS MAINTAINED. CALL LIGHT IN REACH.
[2018-02-17 20:00] VITALS: BP 100/51
--- NOTE | 2018-02-17 20:31 | NUR ---
RN OPENING NOTES RECEIVED REPORT FROM AM RN. PATIENT A/A/O X2-3 ABLE TO MAKE SOME NEEDS KNOWN & STATE PAIN. BREATHING EVEN & UNLABORED, TOLERATING O2 @ 3LPM VIA NC. RADIAL PULSES PRESENT & BOUNDING. DENIES ANY SOB OR DIFFICULTY BREATHING. LEFT FOREARM IV #20 INTACT & PATENT W/ DRESSING CDI, SALINE LOCKED. LEFT FEMORAL AV SHUNT INTACT, NO SIGNS OF INFECTION NOTED. DENIES ANY PAIN OR DISCOMFORT @ THIS TIME. SAFETY MEASURES IN PLACE W/ CALL LIGHT WITHIN REACH. INSTRUCTED TO CALL FOR ASSISTANCE. WILL CONTINUE TO MONITOR.
[2018-02-17] MEDS: VIT B CMPLX 3/FA/VIT C/BIOTIN 1 TAB TABLET PO SCH (21:37)
[2018-02-17] MEDS: ATORVASTATIN 40 MG TABLET PO SCH (21:37)
[2018-02-18] VITALS: BP 104/49
[2018-02-18 04:00] VITALS: BP 109/57
[2018-02-18] MEDS: PIPERACILLIN /TAZOBACTAM 2.25 G in IV D5W 50 ML IV SCH ×3 (05:48→21:57)
--- NOTE | 2018-02-18 07:00 | NUR ---
M/S RN OPENING NOTES RECEIVED REPORT FROM AM RN. PATIENT A/A/O X2-3 ABLE TO MAKE SOME NEEDS KNOWN & STATE PAIN. BREATHING EVEN & UNLABORED, TOLERATING O2 @ 3LPM VIA NC. RADIAL PULSES PRESENT & BOUNDING. DENIES ANY SOB OR DIFFICULTY BREATHING. LEFT FOREARM IV #20 INTACT & PATENT W/ DRESSING CDI, SALINE LOCKED. LEFT FEMORAL AV SHUNT INTACT, NO SIGNS OF INFECTION NOTED. DENIES ANY PAIN OR DISCOMFORT @ THIS TIME. SAFETY MEASURES IN PLACE W/ CALL LIGHT WITHIN REACH. WILL CONTINUE TO MONITOR.
[2018-02-18 08:00] VITALS: BP 120/63
[2018-02-18] MEDS: BLOOD SUGAR DIAGNOSTIC 1 EACH STRIP IN SCH ×4 (08:04→22:10)
[2018-02-18] MEDS: PHENYTOIN EXTENDED RELEASE 100 MG CAPSULE PO SCH ×2 (08:15→21:59)
[2018-02-18] MEDS: ASCORBIC ACID 500 MG TABLET PO SCH (08:15)
[2018-02-18] MEDS: CARVEDILOL 6.25 MG TABLET PO SCH ×2 (08:15→17:57)
[2018-02-18] MEDS: PANTOPRAZOLE 40 MG TABLET.DR PO SCH (08:15)
[2018-02-18] MEDS: SEVELAMER CARBONATE 800 MG TABLET PO SCH ×3 (08:15→17:56)
[2018-02-18] MEDS: CINACALCET HCL 30 MG TABLET PO SCH (08:16)
[2018-02-18] MEDS: CITALOPRAM HYDROBROMIDE 10 MG TABLET PO SCH (08:16)
[2018-02-18] MEDS: MUPIROCIN OINT 2% 22 GM TUBE SCH ×2 (08:18→21:58)
[2018-02-18] MEDS: HYDROCODONE/APAP 5/325MG 1 EACH TABLET PO PRN (09:41)
[2018-02-18 12:00] VITALS: BP 113/56
[2018-02-18 16:00] VITALS: BP 116/65
--- NOTE | 2018-02-18 19:30 | NUR ---
RN NOTE; RECEIVED PT IN BED AWAKE AND RESPONSIVE. RECEIVING HD. HD NURSE AT THE BED SIDE, REPORTED NO COMPLICATION AT THIS TIME. L FEMUR HD CATH PATENT AND INTACT. PT DENIED ANY PAIN OR DISCOMFORT AT THIS TIME. NEEDS ATTENDED. CALL LIGHT WITHIN REACH. WILL CONT TO MONITOR,
--- NOTE | 2018-02-18 19:30 | NUR ---
MS RN CLOSING NOTES REPORTED TO PM NURSE FOR CONTINUITY OF CARE. PT IS NOT IN DISTRESS AT THIS TIME. PT IS RESTING IN BED. HEMODIALYSIS AT BEDSIDE. ALL NEEDS ATTENDED TO. SAFETY PRECAUTIONS MAINTAINED. CALL LIGHT IN REACH.
[2018-02-18 20:00] VITALS: BP 110/57
--- NOTE | 2018-02-18 21:57 | NUR ---
PT COMPLETED THE HD SESSION WITH NO COMPLICATION. 1 LIT OUT AND STABLE VS WAS REPORTED BY THE HD NURSE, NO BLEEDING FROM THE HD SITE. PRESSURE DRESSING INTACT. MEDICATION GIVEN ORDERED . SNACKS GIVEN PERP T'S REQUEST . CALL LIGHT WITHIN REACH. WILL CONT TO MONITOR ,
[2018-02-18] MEDS: VIT B CMPLX 3/FA/VIT C/BIOTIN 1 TAB TABLET PO SCH (21:59)
[2018-02-18] MEDS: ATORVASTATIN 40 MG TABLET PO SCH (21:59)
[2018-02-18] MEDS: INSULIN REGULAR, HUMAN 100 UNIT/ML 3 ML VIAL SQ PRN (22:12)
[2018-02-19 04:00] VITALS: BP 140/47
[2018-02-19] MEDS: PIPERACILLIN /TAZOBACTAM 2.25 G in IV D5W 50 ML IV SCH ×3 (05:00→21:25)
--- NOTE | 2018-02-19 06:39 | NUR ---
PT IN BED SLEEPING. AROUSES EASILY. BREATHING EVENLY. NO SOB. NO ACUTE EVENT DURING THE NIGHT. NO C/O PAIN OR DISCOMFORT . S/P HD WITH NO COMPLICATIONS. HD CATH INTACT WITH NO BLEEDING . NEEDS ATTENDED , ASSISTED WITH ADLS, BED LOW LOCKED. CALL LIGHT WITHIN REACH. WILL CONT TO MONITOR AND WILL ENDORSE TO AM SHIFT FOR [facility]
[2018-02-19] MEDS: BLOOD SUGAR DIAGNOSTIC 1 EACH STRIP IN SCH ×4 (07:30→21:38)
[2018-02-19] MEDS: MUPIROCIN OINT 2% 22 GM TUBE SCH ×2 (09:00→21:33)
[2018-02-19] MEDS: PHENYTOIN EXTENDED RELEASE 100 MG CAPSULE PO SCH ×2 (09:53→21:26)
[2018-02-19] MEDS: ASCORBIC ACID 500 MG TABLET PO SCH (09:53)
[2018-02-19] MEDS: CINACALCET HCL 30 MG TABLET PO SCH (09:53)
[2018-02-19] MEDS: PANTOPRAZOLE 40 MG TABLET.DR PO SCH (09:53)
[2018-02-19] MEDS: CARVEDILOL 6.25 MG TABLET PO SCH ×2 (09:54→18:10)
[2018-02-19] MEDS: CITALOPRAM HYDROBROMIDE 10 MG TABLET PO SCH (09:54)
[2018-02-19] MEDS: POLYETHYLENE GLYCOL 3350 17 GM POWD.PACK PO PRN (09:55)
[2018-02-19] MEDS: SEVELAMER CARBONATE 800 MG TABLET PO SCH ×3 (09:59→18:10)
[2018-02-19] MEDS: INSULIN REGULAR, HUMAN 100 UNIT/ML 3 ML VIAL SQ PRN ×2 (10:07→21:37)
[2018-02-19 12:00] VITALS: BP 140/97
[2018-02-19 16:00] VITALS: BP 117/65
--- NOTE | 2018-02-19 19:45 | NUR ---
MS RN NOTES: RECEIVED PT ON BED ALERT AND AWAKE. NO APPARENT DISTRESS NOTED. DENIES PAIN AND DISCOMFORT AT THIS TIME. ON 3LPM NASAL CANNULA, NO SOB NOTED. IV ON LEFT FOREARM INTACT AND PATENT, FLUSHING WELL. KEPT CLEAN, DRY AND COMFORTABLE. CALL LIGHT PLACED WITHIN REACH. SIDE RAILS UP X2. BED ALARM ON. BED LOCKED AND IN LOWEST POSITION. WILL CONTINUE TO MONITOR PT.
[2018-02-19 20:00] VITALS: BP 126/68
[2018-02-19] MEDS: VIT B CMPLX 3/FA/VIT C/BIOTIN 1 TAB TABLET PO SCH (21:25)
[2018-02-19] MEDS: ATORVASTATIN 40 MG TABLET PO SCH (21:26)
[2018-02-20 04:00] VITALS: BP 121/62
[2018-02-20] MEDS: PIPERACILLIN /TAZOBACTAM 2.25 G in IV D5W 50 ML IV SCH ×3 (04:10→21:39)
--- NOTE | 2018-02-20 06:51 | NUR ---
MS RN NOTES: NO CHANGES NOTED THROUGHOUT THE SHIFT. NO APPARENT DISTRESS NOTED. DENIES PAIN AND DISCOMFORT AT THIS TIME. NO SOB NOTED. ALL DUE MEDS GIVEN ORDERED AND WELL TOLERATED. KEPT CLEAN, DRY AND COMFORTABLE. CALL LIGHT WITHIN REACH. WILL ENDORSE TO DAY SHIFT NURSE FOR CONTINUITY OF CARE.
--- NOTE | 2018-02-20 07:15 | NUR ---
Pt aaox4, denies pain/sob. Bed locked in low position with side rails up x2. IV patent/intact. Bed locked in low position with side rails up x2. Pt educated on use of call light/TV. Pt verbalized understanding.
[2018-02-20] MEDS: BLOOD SUGAR DIAGNOSTIC 1 EACH STRIP IN SCH ×4 (07:30→21:46)
[2018-02-20 08:00] VITALS: BP_SYST 130; BP_SYST 136; BP_DIAS 66; BP_DIAS 70
[2018-02-20] MEDS: CARVEDILOL 6.25 MG TABLET PO SCH ×2 (09:00→18:22)
[2018-02-20] MEDS: ASCORBIC ACID 500 MG TABLET PO SCH (11:47)
[2018-02-20] MEDS: SEVELAMER CARBONATE 800 MG TABLET PO SCH ×2 (11:47→13:21)
[2018-02-20] MEDS: PHENYTOIN EXTENDED RELEASE 100 MG CAPSULE PO SCH ×2 (11:47→21:40)
[2018-02-20] MEDS: PANTOPRAZOLE 40 MG TABLET.DR PO SCH (11:47)
[2018-02-20] MEDS: CINACALCET HCL 30 MG TABLET PO SCH (11:47)
[2018-02-20 12:00] VITALS: BP 136/76
--- NOTE | 2018-02-20 12:00 | NUR ---
VSS, pt awaiting HD. Coreg and Antibiotic held for HD.
[2018-02-20] MEDS: MUPIROCIN OINT 2% 22 GM TUBE SCH ×2 (13:20→21:43)
[2018-02-20] MEDS: CITALOPRAM HYDROBROMIDE 10 MG TABLET PO SCH (13:20)
[2018-02-20 16:00] VITALS: BP_SYST 124; BP_SYST 149; BP_DIAS 73; BP_DIAS 78
--- NOTE | 2018-02-20 16:00 | NUR ---
Pt awaiting HD, VSS.
[2018-02-20 20:00] VITALS: BP 130/70
--- NOTE | 2018-02-20 20:14 | NUR ---
MS RN NOTES: RECEIVED PT ON BED ALERT AND AWAKE, VERBALLY RESPONSIVE. NO ACUTE DISTRESS NOTED. DENIES PAIN AND DISCOMFORT AT THIS TIME. ON 3LPM NASAL CANNULA, NO SOB NOTED. SATURATING WELL. IV ON LEFT FOREARM INTACT AND PATENT, FLUSHING WELL. KEPT CLEAN, DRY AND COMFORTABLE. CALL LIGHT PLACED WITHIN REACH. SAFETY AND FALL PRECAUTIONS OBSERVED AND MAINTAINED. WILL CONTINUE TO MONITOR PT.
[2018-02-20] MEDS: VIT B CMPLX 3/FA/VIT C/BIOTIN 1 TAB TABLET PO SCH (21:39)
[2018-02-20] MEDS: ATORVASTATIN 40 MG TABLET PO SCH (21:40)
[2018-02-21 04:00] VITALS: BP 125/64
[2018-02-21] MEDS: PIPERACILLIN /TAZOBACTAM 2.25 G in IV D5W 50 ML IV SCH ×3 (04:27→21:38)
--- NOTE | 2018-02-21 06:42 | NUR ---
MS RN NOTES: NO CHANGES NOTED THROUGHOUT THE SHIFT. NO ACUTE DISTRESS NOTED. DENIES PAIN AND DISCOMFORT AT THIS TIME. ON 3LPM NASAL CANNULA, NO SOB NOTED. ALL DUE MEDS GIVEN ORDERED AND WELL TOLERATED. KEPT CLEAN, DRY AND COMFORTABLE. SAFETY AND FALL PRECAUTIONS OBSERVED AND MAINTAINED. CALL LIGHT WITHIN REACH. WILL ENDORSE TO DAY SHIFT NURSE FOR CONTINUITY OF CARE.
[2018-02-21] MEDS: BLOOD SUGAR DIAGNOSTIC 1 EACH STRIP IN SCH ×4 (07:30→21:39)
--- NOTE | 2018-02-21 07:48 | NUR ---
MED SURGE RN OPENING RECEIVED PATIENT IN STABLE CONDITION RESTING IN BED. NO SHORTNESS OF BREATH NOTED, ON O2 VIA NASAL CANNULA AT 3LPM. ABLE TO MAKE NEEDS KNOWN. BED IN LOCKED LOW POSITION, CALL LIGHT WITHIN REACH, WILL CONTINUE TO MONITOR CLOSELY.
[2018-02-21 08:00] VITALS: BP 136/71
[2018-02-21 08:25] LABS: CALCIUM, SERUM 8.6 mg/dL (8.5-10.1); CREATININE 5.4 mg/dL (0.6-1.3); MAGNESIUM 2.1 mg/dL (1.8-2.4); POTASSIUM 5.8 mmol/L (3.5-5.1)
[2018-02-21] MEDS: FLUTICASONE/VILANTEROL 1 EACH BLST.W.DEV IH SCH (08:26)
[2018-02-21] MEDS: POLYETHYLENE GLYCOL 3350 17 GM POWD.PACK PO PRN (08:27)
[2018-02-21] MEDS: ASCORBIC ACID 500 MG TABLET PO SCH (08:28)
[2018-02-21] MEDS: PANTOPRAZOLE 40 MG TABLET.DR PO SCH (08:28)
[2018-02-21] MEDS: CITALOPRAM HYDROBROMIDE 10 MG TABLET PO SCH (08:28)
[2018-02-21] MEDS: PHENYTOIN EXTENDED RELEASE 100 MG CAPSULE PO SCH ×2 (08:29→21:39)
[2018-02-21] MEDS: CINACALCET HCL 30 MG TABLET PO SCH (08:29)
[2018-02-21] MEDS: HYDROCODONE/APAP 5/325MG 1 EACH TABLET PO PRN (08:30)
[2018-02-21] MEDS: CARVEDILOL 6.25 MG TABLET PO SCH ×2 (08:31→19:26)
[2018-02-21 08:32] LABS: BASOPHILS % (AUTO) 0.2 % (0.0-2.0); HEMATOCRIT 25 % (39-51); HEMOGLOBIN 7.8 g/dL (13.5-17.5); LYMPHOCYTES # (AUTO) 0.6 /CMM (0.8-4.8); LYMPHOCYTES % (AUTO) 13.3 % (20.0-44.0); MEAN CORPUSCULAR HGB CONC 32 g/dl (31.0-36.0); MEAN CORPUSCULAR VOLUME 90 fL (80-96); MONOCYTES # (AUTO) 0.3 /CMM (0.1-1.30); MONOCYTES % (AUTO) 6.2 % (2.0-12.0); NEUTROPHILS # (AUTO) 3.4 /CMM (1.8-8.9); NEUTROPHILS % (AUTO) 74.3 % (43.0-81.0); PLATELET COUNT (AUTO) 218 /CMM (150-450); RDW COEFFICIENT OF VARIATION 21.6 (11.5-15.0); RED BLOOD CELL COUNT(AUTO) 2.72 MIL/uL (4.5-6.0); WHITE BLOOD COUNT (AUTO) 4.6 K/uL (4.3-11.0)
[2018-02-21] MEDS: MUPIROCIN OINT 2% 22 GM TUBE SCH ×2 (08:32→21:44)
[2018-02-21] MEDS ORDERED: EPOETIN ALFA (10,000 UNIT) 10,000 UNIT/ML VIAL SQ ONE (12:30)
[2018-02-21 16:00] VITALS: BP 127/56
--- NOTE | 2018-02-21 19:00 | NUR ---
MS RN OPENING NOTE RECEIVE PATIENT AWAKE IN BED, A/O X 2-3, NO SOB OR DISTRESS NOTED, CALL LIGHT WITHIN REACH. SAFETY MEASURES IMPLEMENTED. WILL CONTINUE TO MONITOR THROUGHOUT SHIFT.
[2018-02-21 20:00] VITALS: BP 131/71
--- NOTE | 2018-02-21 20:04 | NUR ---
PATIENT RESTING IN BED IN STABLE CONDITION, NO RESPIRATORY DISTRESS OR COMPLAINT OF PAIN. ON OXYGEN VIA NASAL CANNULA AT 3LPM. IV SITE ON LEFT FOREARM INTACT SALINE LOCK. HEAD OF BED ELEVATED, BED IN LOW AND LOCKED POSITION, ENDORSED TO NIGHT NURSE FOR CONTINUITY OF CARE.
[2018-02-21] MEDS: ATORVASTATIN 40 MG TABLET PO SCH (21:39)
[2018-02-21] MEDS: VIT B CMPLX 3/FA/VIT C/BIOTIN 1 TAB TABLET PO SCH (21:39)
[2018-02-21] MEDS: INSULIN REGULAR, HUMAN 100 UNIT/ML 3 ML VIAL SQ PRN (21:46)
--- NOTE | 2018-02-21 22:00 | NUR ---
REFUSED INSULIN SLIDING SCALE PER PT HE DOESN'T NEED IT DESPITE EXPLAINING RISKS AND BENEFITS OFFERED 3 TIMES STILL REFUSED. BLOOD SUGAR 200 MG/DL
[2018-02-22 04:00] VITALS: BP 116/65
[2018-02-22] MEDS: PIPERACILLIN /TAZOBACTAM 2.25 G in IV D5W 50 ML IV SCH ×2 (04:15→12:34)
--- NOTE | 2018-02-22 06:20 | NUR ---
MS RN CLOSING NOTES ASLEEP AND EASILY AWAKEN, STABLE, NOT IN DISTRESS. RESPIRATION EVEN AND UNLABORED. KEPT CLEAN AND DRY AND COMFORTABLE, ALL NURSING CARE RENDERED. NEEDS ATTENDED AND ANTICIPATED. GOOD SKIN CARE. ON LOW BED AT ALL TIMES TO ENSURE SAFETY. SAFE HAZARD FREE ENVIRONMENT PROVIDED. CALL LIGHT WITHIN EASY TO REACH. WILL ENDORSE NEXT SHIFT CONTINUITY OF CARE.
--- NOTE | 2018-02-22 07:10 | NUR ---
GUEST ATTENDANT OPENING NOTE PATIENT RESTING IN BED IN STABLE CONDITION, NO RESPIRATORY DISTRESS NOTED. ALERT AND ORIENTED, ABLE TO MAKE NEEDS KNOWN. ON 3 LITERS OF O2 VIA NASAL CANNULA. HEAD OF BED ELEVATED, BED IN LOW AND LOCKED POSITION, WILL CONTINUE TO MONITOR.
[2018-02-22 07:38] LABS: CALCIUM, SERUM 8.5 mg/dL (8.5-10.1); CREATININE 4.6 mg/dL (0.6-1.3); PHOSPHORUS 2.8 mg/dL (2.5-4.9); POTASSIUM 4.5 mmol/L (3.5-5.1)
[2018-02-22 07:42] LABS: BASOPHILS % (AUTO) 0.5 % (0.0-2.0); EOSINOPHILS % (AUTO) 7.1 % (0.0-6.0); HEMATOCRIT 24 % (39-51); HEMOGLOBIN 7.4 g/dL (13.5-17.5); LYMPHOCYTES # (AUTO) 0.5 /CMM (0.8-4.8); LYMPHOCYTES % (AUTO) 14.8 % (20.0-44.0); MEAN CORPUSCULAR HGB CONC 32 g/dl (31.0-36.0); MEAN CORPUSCULAR VOLUME 90 fL (80-96); MONOCYTES # (AUTO) 0.2 /CMM (0.1-1.30); MONOCYTES % (AUTO) 6.5 % (2.0-12.0); NEUTROPHILS # (AUTO) 2.6 /CMM (1.8-8.9); NEUTROPHILS % (AUTO) 71.1 % (43.0-81.0); PLATELET COUNT (AUTO) 216 /CMM (150-450); RDW COEFFICIENT OF VARIATION 21.6 (11.5-15.0); RED BLOOD CELL COUNT(AUTO) 2.64 MIL/uL (4.5-6.0); WHITE BLOOD COUNT (AUTO) 3.7 K/uL (4.3-11.0)
[2018-02-22 08:00] VITALS: BP 134/48
[2018-02-22] MEDS: FLUTICASONE/VILANTEROL 1 EACH BLST.W.DEV IH SCH (10:00)
[2018-02-22] MEDS: CINACALCET HCL 30 MG TABLET PO SCH (10:00)
[2018-02-22] MEDS: ASCORBIC ACID 500 MG TABLET PO SCH (10:01)
[2018-02-22] MEDS: CARVEDILOL 6.25 MG TABLET PO SCH ×2 (10:04→16:50)
[2018-02-22] MEDS: PHENYTOIN EXTENDED RELEASE 100 MG CAPSULE PO SCH (10:04)
[2018-02-22] MEDS: CITALOPRAM HYDROBROMIDE 10 MG TABLET PO SCH (10:04)
[2018-02-22] MEDS: MUPIROCIN OINT 2% 22 GM TUBE SCH (10:05)
[2018-02-22] MEDS: BLOOD SUGAR DIAGNOSTIC 1 EACH STRIP IN SCH ×3 (10:05→16:50)
[2018-02-22] MEDS: PANTOPRAZOLE 40 MG TABLET.DR PO SCH (10:07)
[2018-02-22 16:50] VITALS: BP 153/106
--- NOTE | 2018-02-22 17:15 | NUR ---
CRANE LADLE PERSON CLOSING NOTE PATIENT PREPARED FOR DISCHARGE. EXITCARE AND DISCHARGE INSTRUCTIONS COMPLETE, SIGNED AND EXPLAINED TO THE PATIENT. PICTURES TAKEN OF SKIN ISSUES. PATIENT GOING TO [facility], CALLED AND GAVE REPORT TO SIDRA ALCOCER. VITAL SIGNS AT DISCHARGE STABLE, HR 69, BP 153/90, T. 98.1, R 18, SPO2 100% ON 3LPM VIA NASAL CANNULA. IV SITE LEFT IN PLACE DUE TO [facility] REQUESTING SINCE IV ANTIBIOTICS WILL CONTINUE AT THE SKILLED FACILITY. NO COMPLAINT OF PAIN. BLOOD SUGAR 150MG/DL, OFFERED INSULIN BUT PATIENT REFUSED. PATIENT ALSO REFUSED FLU AND PNEUMONIA VACCINES. PATIENT BELONGINGS SHEET COMPLETE AND SIGNED, PATIENT LEFT ON A GURNEY WITH BELONGINGS ACCOMPANIED BY [facility] NURSE PRACTITIONER BACK TO [facility] AT 17:00.
== END 2018-02-22 17:00 | DRG 720 ==
LOC: ER 15:58 → TELE 19:53 → TELE-TD 21:20 → TELE1 02-15 19:13 → MEDSG1 02-16 11:03
PROVIDERS: ADMIT Internal Medicine Nephrology; ATTEND Internal Medicine Nephrology
PROC: 5A1D70Z Performance of Urinary Filtration, Intermittent, Less than 6 Hours Per Day (ICD-10-PCS; principal; 2018-02-13)
PROC: 5A1D70Z Performance of Urinary Filtration, Intermittent, Less than 6 Hours Per Day (ICD-10-PCS; 2018-02-14)
PROC: 5A1D70Z Performance of Urinary Filtration, Intermittent, Less than 6 Hours Per Day (ICD-10-PCS; 2018-02-15)
PROC: 30233N1 Transfusion of Nonautologous Red Blood Cells into Peripheral Vein, Percutaneous Approach (ICD-10-PCS; 2018-02-15)
PROC: 5A1D70Z Performance of Urinary Filtration, Intermittent, Less than 6 Hours Per Day (ICD-10-PCS; 2018-02-16)
PROC: 5A1D70Z Performance of Urinary Filtration, Intermittent, Less than 6 Hours Per Day (ICD-10-PCS; 2018-02-17)
PROC: 5A1D70Z Performance of Urinary Filtration, Intermittent, Less than 6 Hours Per Day (ICD-10-PCS; 2018-02-18)
PROC: 5A1D70Z Performance of Urinary Filtration, Intermittent, Less than 6 Hours Per Day (ICD-10-PCS; 2018-02-20)
PROC: 5A1D70Z Performance of Urinary Filtration, Intermittent, Less than 6 Hours Per Day (ICD-10-PCS; 2018-02-21)
DX: A41.9 Sepsis, unspecified organism (principal); I21.4 Non-ST elevation (NSTEMI) myocardial infarction; J96.01 Acute respiratory failure with hypoxia; I13.2 Hypertensive heart and chronic kidney disease with heart failure and with stage 5 chronic kidney disease, or end stage renal disease; I12.0 Hypertensive chronic kidney disease with stage 5 chronic kidney disease or end stage renal disease; J18.9 Pneumonia, unspecified organism; E11.22 Type 2 diabetes mellitus with diabetic chronic kidney disease; I50.9 Heart failure, unspecified; Z99.2 Dependence on renal dialysis; N18.6 End stage renal disease; R65.20 Severe sepsis without septic shock; Z88.1 Allergy status to other antibiotic agents; I25.10 Atherosclerotic heart disease of native coronary artery without angina pectoris; Z91.041 Radiographic dye allergy status; Z79.01 Long term (current) use of anticoagulants; Z79.4 Long term (current) use of insulin; Z79.899 Other long term (current) drug therapy; D50.9 Iron deficiency anemia, unspecified; E21.3 Hyperparathyroidism, unspecified; M85.9 Disorder of bone density and structure, unspecified; E87.5 Hyperkalemia; D64.9 Anemia, unspecified
CPT/HCPCS: 36415; 71045-TC; 75574; 80048-TC; 80053-TC; 80061-TC; 80076-TC; 82728-TC; 82962-TC; 83540-TC; 83605-TC; 83735-TC; 84100-TC; 84439-TC; 84443-TC; 84484-TC; 85025-TC; 85730-TC; 86850-TC; 86921-TC; 87040-TC; 87081-TC; 87186-TC; 90935-TC; 93307-TC; 97110-TC; 97116-TC; 97530-TC; A4216; A4606; A6402; J0692; J0885; J1815; J1885; J2020; J2270; J2405; J2543; J2930; J7030; J7040; J7050; J7060; P9016-BL; P9047; Q0163; Q9967; Z7610